=== PATIENT | female | born 1990 | race Two or more races ===

== ENCOUNTER 2022-09-21 18:31 | Emergency (ER) | payer OTHER ==
[~2022-09-21] VITALS: Ht 152.4 cm; Wt 61.2 kg
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
--- NOTE | 2022-09-21 20:29 | NUR ---
PT TAKEN TO CT SCAN
--- NOTE | 2022-09-21 21:45 | NUR ---
Patient discharged to home in stable condition. Written and verbal after care instructions given. Patient verbalizes understanding of instruction.
[2022-09-21 21:46] VITALS: BP 115/60
== END 2022-09-21 22:22 | disposition home or self-care (01) ==
LOC: ER 18:34
DX: S00.03XA Contusion of scalp, initial encounter (principal); W18.2XXA Fall in (into) shower or empty bathtub, initial encounter; Y93.89 Activity, other specified; Y92.89 Other specified places as the place of occurrence of the external cause; Y99.8 Other external cause status
CPT/HCPCS: 70450-TC